=== PATIENT | female | born 1995 | race Caucasian/White ===

== ENCOUNTER 2022-12-14 18:39 | Emergency (ER) | payer OTHER, SELFPAY ==
[2022-12-14 18:44] VITALS: BP 107/60; PULSE 85; RESP 18; TEMP 36.4; O2SAT 98
[2022-12-14 19:15] LABS: Appearance Urine Cloudy (Clear); Bacteria Urine 2+ /hpf; Bilirubin Urine Negative (Negative); Color Urine Yellow (Yellow); Glucose Urine UA Negative (Negative); Ketones Urine Trace mg/dL (Negative); Leukocyte Esterase Ur 1+ LEU/UL (Negative); Nitrate Urine Negative (Negative); Non Pathogenic Casts 0-2; Protein Urine Negative (Negative); Specific Grav Ur 1.026 (1.001-1.035); Squamous Epithelial Cell Urine Moderate /hpf (Few)
[2022-12-14 19:19] LABS: Add Urine Microscopic? YES
--- NOTE | 2022-12-14 19:33 | ED.FEMALEGU ---
HPI - Female Genitourinary General Chief complaint: Urogenital-Female Stated complaint: uti check, 22 weeks Time Seen by Provider: 12/14/22 18:58 Source: patient Mode of arrival: ambulatory Limitations: no limitations History of Present Illness HPI Narrative: This is a 27-year-old female who presents to the ED with chief complaint of possible UTI. She states that she has had malodorous and darker colored urine for the past week. She states she is staying very well-hydrated but this does not help with the urine discoloration. Denies burning or hematuria but does endorse frequency that seems normal with her . She reports she is about 22 weeks . Denies any flank pain, fevers, chills, nausea, vomiting, abdominal pain. Related Data Allergies Allergy/AdvReac Type Severity Reaction Status Date / Time No Known Allergies Allergy Verified 12/14/22 18:57 Review of Systems Review of Systems: All systems as dictated in HPI Exam Narrative: GENERAL: Well-appearing, well-nourished, and in no acute distress. HEAD: Normocephalic, atraumatic. EYES: PERRLA and EOMI. ENT: Nares clear, no rhinorrhea or epistaxis. Mucous membranes moist. Oropharynx without tonsillar hypertrophy exudate or other lesions. NECK: Supple. No adenopathy or masses. CHEST: No respiratory distress. Clear to auscultation. No wheezes rales or rhonchi HEART: Regular rate and rhythm. No murmur heard. Normal peripheral pulses. ABDOMEN: Soft, nontender, nondistended, normal active bowel sounds. MSK: Normal range of motion. No edema. SKIN: Warm, dry, no rash. NEURO: Alert and oriented x3. No focal deficits. PSYCH: Normal mood and affect. Course Vital Signs Vital signs: Vital Signs Temperature 97.6 F 12/14/22 18:44 Pulse Rate 85 12/14/22 18:44 Respiratory Rate 18 12/14/22 18:44 Blood Pressure 107/60 12/14/22 18:44 Pulse Oximetry 98 12/14/22 18:44 Oxygen Delivery Room Air 12/14/22 18:44 Temperature 97.6 F 12/14/22 18:44 Pulse Rate 85 12/14/22 18:44 Respiratory Rate 18 12/14/22 18:44 Blood Pressure 107/60 12/14/22 18:44 Pulse Oximetry 98 12/14/22 18:44 Oxygen Delivery Room Air 12/14/22 18:44 MDM - Female Genitourinary MDM Narrative Medical decision making narrative: This is a 27-year-old female who is around 22 weeks who presents to the ED for concern of UTI. She has had dark and malodorous urine for the past week. Vitals are normal. Afebrile. Exam is benign. No flank pain. Urinalysis today does show evidence of potential UTI with leukocyte esterase, 2+ bacteria and white cells. We will cover with Macrobid. She has follow-up appointment will be soon and will follow-up with them about this potential UTI. Cultures were sent. Pt will be discharged in stable condition. Return precautions given and supportive measures discussed. Pt is understanding and agreeable with plan for discharge and follow-up with OB. Lab Data Labs: Lab Results 12/14/22 Range/Units 19:01 Urine Color Yellow (Yellow) Urine Appearance Cloudy H (Clear) Urine pH 6.0 (5.0-9.0) Ur Specific [place] 1.026 (1.001-1.035) Urine Protein Negative (Negative) mg/dL Urine Glucose (UA) Negative (Negative) mg/dL Urine Ketones Trace H (Negative) mg/dL Ur Blood (Man) Non-hemolyzed trace (Negative) Urine Nitrate Negative (Negative) Urine Bilirubin Negative (Negative) Urine Urobilinogen 1.0 (<2.0) mg/dL Leukocyte Esterase Rfl 1+ H (Negative) SWEETIE/UL Urine RBC 6-10 H (0-2) /hpf Urine WBC 6-10 H /hpf Ur Squamous Epith Cells Moderate (Few) /hpf Urine Bacteria 2+ H /hpf Urine Casts 0-2 Urine Characteristics Clear Discharge Plan Discharge Clinical Impression: Urinary tract infection Patient Disposition: Home, Self-Care Condition: Stable Instructions: Antibiotic Form, Urina
== END 2022-12-14 19:48 | disposition home or self-care (01) ==
PROVIDERS: Emergency Medicine; Emergency Provider Physician Assistant
DX: O23.42 Unspecified infection of urinary tract in pregnancy, second trimester (principal); N39.0 Urinary tract infection, site not specified; Z3A.22 22 weeks gestation of pregnancy
CPT/HCPCS: 81001; 87086; 87088; 99283

== ENCOUNTER 2023-06-26 08:37 | Emergency (ER) | payer OTHER, SELFPAY ==
[2023-06-26 08:40] VITALS: BP 124/76; PULSE 65; RESP 18; TEMP 35.7; O2SAT 100
[2023-06-26 08:52] VITALS: BP 124/79; PULSE 72; RESP 16; O2SAT 100
[2023-06-26 09:09] LABS: Basophils Absolute Auto 0.1 K/mm3 (0.0-0.1); Basophils Percent Auto 0.7 % (0.2-1.2); Eosinophils Absolute Auto 0.1 K/mm3 (0-0.3); Eosinophils Percent Auto 1.2 % (0-4.4); Hematocrit 45.4 % (37.0-47.0); Hemoglobin 14.7 g/dL (12.0-15.0); Immature Granulocyte Absolute 0.05 K/mm3 (0.00-0.031); Immature Granulocyte Percent A 0.6 % (0-0.5); Mean Corpuscular HGB Conc 32.4 g/dl (32-36); Mean Corpuscular Hemoglobin 30.4 pg (26-34); Mean Corpuscular Volume 93.8 fl (80-100); Monocytes Absolute Auto 0.4 K/mm3 (0.1-0.6); Monocytes Percent Auto 4.9 % (2.6-8.5); Neutrophils Absolute Auto 6.5 K/mm3 (1.3-6.7); Neutrophils Percent Auto 71.6 % (45.5-73.1); Platelet Count Result 361 k/mm3 (150-375); Red Blood Count 4.84 M/mm3 (4.2-5.4); Red Cell Distribution Width 13.2 % (11.5-14.5)
[2023-06-26 09:16] LABS: Alanine Aminotransferase 32 U/L (6-35); Albumin Level 4.6 g/dL (3.5-5.1); Alkaline Phosphatase 69 U/L (38-126); Anion Gap 7 mmol/L (8-16); Aspartate Amino Transferase 24 U/L (14-36); Bilirubin,Total 0.5 mg/dL (0.2-1.3); Blood Urea Nitrogen 13 mg/dL (7-17); Calcium 9.1 mg/dL (8.4-10.2); Carbon Dioxide 27 mmol/L (22-30); Chloride 106 mmol/L (98-107); Estimated CRCL calculation 73 ml/min; Estimated Glomerular Filt Rate > 60; Glucose 139 mg/dL (65-110); Lipase 147 U/L (23-300); Potassium 3.7 mmol/L (3.4-5.0); Sodium 140 mmol/L (137-145)
--- NOTE | 2023-06-26 09:18 | ED.GENADULT ---
HPI - General Adult General Chief complaint: Abdominal Pain Stated complaint: abdominal pain Time Seen by Provider: 06/26/23 09:02 Source: patient Mode of arrival: ambulatory Limitations: no limitations History of Present Illness HPI narrative: This is a 27-year-old female who presents to the ED with chief complaint of abdominal pain for the past 2 days. Reports the pain is mainly epigastric and left upper quadrant. She reports it radiates to the back at times as well as up into the chest. Described as a burning and cramping pain. States it comes and goes in severity. Currently at 4. Endorses 1 episode of vomiting this morning. No specific association with food. Denies fevers, chills, shortness of breath, GI bleeding symptoms, diarrhea, constipation, urinary symptoms, flank pain. Related Data Allergies Allergy/AdvReac Type Severity Reaction Status Date / Time No Known Allergies Allergy Verified 06/26/23 08:37 Review of Systems Review of Systems: All systems as dictated in HPI Exam Narrative: GENERAL: Well-appearing, well-nourished, and in no acute distress. Resting comfortably HEAD: Normocephalic, atraumatic. EYES: PERRLA and EOMI. ENT: Nares clear, no rhinorrhea or epistaxis. Mucous membranes moist. Oropharynx without tonsillar hypertrophy exudate or other lesions. NECK: Supple. No adenopathy or masses. CHEST: No respiratory distress. Clear to auscultation. No wheezes rales or rhonchi HEART: Regular rate and rhythm. No murmur heard. Normal peripheral pulses. ABDOMEN: Mild epigastric tenderness. soft, otherwise nontender, nondistended, normal active bowel sounds. Negative flank tenderness bilaterally MSK: Normal range of motion. No edema. SKIN: Warm, dry, no rash. NEURO: Alert and oriented x3. No focal deficits. PSYCH: Normal mood and affect. Course Course Emergency Course: Re-evaluation 10 11: Feeling improved after GI cocktail. Vital Signs Vital signs: Vital Signs Temperature 96.3 F L 06/26/23 08:40 Pulse Rate 65 06/26/23 08:40 Respiratory Rate 18 06/26/23 08:40 Blood Pressure 124/76 06/26/23 08:40 Pulse Oximetry 100 06/26/23 08:40 Oxygen Delivery Room Air 06/26/23 08:40 Temperature 96.3 F L 06/26/23 08:40 Pulse Rate 64 06/26/23 10:38 Respiratory Rate 16 06/26/23 10:38 Blood Pressure 121/78 06/26/23 10:38 Pulse Oximetry 100 06/26/23 10:38 Oxygen Delivery Room Air 06/26/23 08:40 Medical Decision Making MDM Narrative Medical decision making narrative: This is a 27-year-old female who presents to the ED with chief complaint of epigastric pain for the past couple of days. Vitals are normal. Exam shows mild epigastric tenderness. Lab work shows a normal white count on the CBC. CMP unremarkable. Lipase normal. Overall symptoms and presentation are most consistent with gastritis. Shared decision making to avoid CT scan at this point. Pepcid and GI cocktail given for treatment and she feels moderately improved with this. She feels comfortable going home and following up with PCP for gastritis. PPI given. Pt will be discharged in stable condition. Return precautions given and supportive measures discussed. Pt is understanding and agreeable with plan for discharge and follow-up with PCP. Vital Signs Vital Signs: Vital Signs Temperature 96.3 F L 06/26/23 08:40 Pulse Rate 65 06/26/23 08:40 Respiratory Rate 18 06/26/23 08:40 Blood Pressure 124/76 06/26/23 08:40 Pulse Oximetry 100 06/26/23 08:40 Oxygen Delivery Room Air 06/26/23 08:40 Temperature 96.3 F L 06/26/23 08:40 Pulse Rate 64 06/26/23 10:38 Respiratory Rate 16 06/26/23 10:38 Blood Pressure 121/78 06/26/23 10:38 Pulse Oximetry 100 06/26/23 10:38 Oxygen Delivery Room Air 06/26/23 08:40 Lab Data 06/26/23 08:54 06/26/23 08:54 Labs: Lab Results 06/26/23 Range/Units 08:54 WBC 9.0 (4.5-10.0) K/mm3
[2023-06-26] MEDS: BELLADONNA ALK/PHENOB ELIX 10 ML, MAG HYDROX/ALUMINUM HYD/SIMETH 30 ML, LIDOCAINE HCL 2... PO (09:25)
[2023-06-26] MEDS: FAMOTIDINE 20 MG/2 ML VIAL IV PUSH (09:26)
[2023-06-26 10:38] VITALS: BP 121/78; PULSE 64; RESP 16; O2SAT 100
== END 2023-06-26 10:42 | disposition home or self-care (01) ==
PROVIDERS: Emergency Medicine; Emergency Provider Physician Assistant
DX: K29.70 Gastritis, unspecified, without bleeding (principal)
CPT/HCPCS: 36415; 80053; 83690; 85025; 96374; 99284; A9270